=== PATIENT | female | born 1960 | race Caucasian/White ===

== ENCOUNTER 2017-08-25 11:51 | Emergency (ER) | payer OTHER ==
[2017-08-25 12:07] VITALS: BP 160/106; PULSE 80; O2SAT 98
[2017-08-25] MEDS ORDERED: TORAdol 30 mg Injection IM ONE (12:13)
[2017-08-25] MEDS ORDERED: TORAdol 30 mg Injection ONE (12:18)
--- NOTE | 2017-08-25 12:19 | ERPHSYRPT ---
- History of Present Illness Time Seen by Provider: 08/25/17 12:14 Source: patient Exam Limitations: no limitations Patient Subjective Stated Complaint: PT states "I have been moving and I think I threw my back out and it goes down into my legs." Triage Nursing Assessment: Pt alert and oriented X 3, skin pwd. PT ambulates with a hunched over gait, able to speak in clear full sentences Physician History: patient presents with low back pain 4 days. Patient states that she's been lifting quite a few boxes moving from apartment to apartment. States pain bilaterally in lower back, described as crampy, localized and intermittent. States pain is worse with movement and decreases with immobilization. Patient denies any fever, chills, urinary or bowel incontinence, numbness or tingling. Patient did note that pain does sh right leg intermittently as well. Patient has tried some Tylenol with minimal relief. States that she has had previous back pain/symptoms previously Timing/Duration: day(s) (4) Method of Injury: lifting Quality: radiating (Right leg), aching Back Pain Location: T-spine Back Pain Radiation: upper legs Severity of Pain-Max: moderate Severity of Pain-Current: moderate Modifying Factors: Improves With: immobilization (improves), movement (worsens) Associated Symptoms: denies symptoms, No fever, No chills, No urinary incontinence, No loss of bowel control, No constipation, No nausea, No vomiting , No problems urinating, No weakness, No sensory/motor loss, No tingling in legs /feet, No muscle spasms Previous symptoms: same symptoms as today Allergies/Adverse Reactions: Penicillins Allergy (Severe, Verified 08/25/17 12:07) Swelling Home Medications: Albuterol 17 gm IH DAILY 08/25/17 [History] Hydroxyzine HCl 25 mg [Atarax 25 mg] 25 mg PO DAILY 08/25/17 [History] Lisinopril [Zestril] 20 mg PO DAILY 08/25/17 [History] Hx Tetanus, Diphtheria Vaccination/Date Given: Yes Hx Influenza Vaccination/Date Given: No Hx Pneumococcal Vaccination/Date Given: No Immunizations Up to Date: Yes - Review of Systems Constitutional: No Fever, No Chills Eyes: No Symptoms Ears, Nose, & Throat: No Symptoms Respiratory: No Cough, No Dyspnea Cardiac: No Chest Pain, No Edema, No Syncope Abdominal/Gastrointestinal: Constipation, No Abdominal Pain, No Nausea, No Vomiting, No Diarrhea Genitourinary Symptoms: No Symptoms, No Dysuria Musculoskeletal: Back Pain, No Neck Pain Skin: No Symptoms, No Rash Neurological: No Symptoms, No Dizziness, No Focal Weakness, No Sensory Changes Psychological: No Symptoms Endocrine: No Symptoms All Other Systems: Reviewed and Negative - Past Medical History Pertinent Past Medical History: Yes Neurological History: Migraines Cardiac History: High Cholesterol, Hypertension Respiratory History: COPD, Sleep Apnea GI Medical History: GERD Psycho-Social History: Anxiety, Depression - Past Surgical History Past Surgical History: Yes Other Surgical History: tubal - Social History Smoking Status: Current every day smoker How long have you smoked: 40 years Exposure to second hand smoke: Yes Drug Use: marijuana Patient Lives Alone: Yes - Female History Hx Last Menstrual Period: 10-15 years ago tubal Hx Now: No - Nursing Vital Signs Nursing Vital Signs: Initial Vital Signs Temperature 98.7 F 08/25/17 11:57 Pulse Rate 80 08/25/17 11:57 Respiratory Rate 20 08/25/17 11:57 Blood Pressure 160/106 08/25/17 11:57 O2 Sat by Pulse Oximetry 98 08/25/17 11:57 Pain Scale Pain Intensity [Right Back] 8 Pain Intensity 8 - Physical Exam General Appearance: no apparent distress, alert Eye Exam: PERRL/EOMI, eyes nml inspection Neck Exam: normal inspection, non-tender, supple, full range of motion, No meningismus, No midline tenderness Respiratory Exam: normal breath sounds, lungs clear, No respiratory distress Cardiovascular Exam: regular rate/rhythm, normal heart sounds Gastrointestinal Exam: soft, No tenderness, No mass Back Exam: normal inspection, point tenderness (there is some paralumbar tenderness bilaterally..), other (decreased range of motion due to pain) Extremity Exam: normal inspection, normal range of motion, No calf tenderness, No pedal edema Peripheral Pulses: dorsalis-pedis (R): 2+, dorsalis-pedis (L): 2+ Neurologic Exam: alert, oriented x 3, cooperative, 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 Decrease activity over next 2-3 days. May take Motrin 400 mg every 6 hours and/ or Tylenol 650 mg every 4 hours for pain. Return for worse back pain, numbnness, tingling or weakness of any extremities Prescriptions: Methylprednisolone Packet [Medrol Dosepack] 4 mg PO UD #30 packet
== END 2017-08-25 13:25 | disposition home or self-care (01) ==
LOC: ED 11:51
DX: M54.5 Low back pain (principal); M62.830 Muscle spasm of back
CPT/HCPCS: 96372; 96374; 99283; 99284; J1885

== ENCOUNTER 2017-10-13 17:12 | Emergency (ER) | payer OTHER ==
[2017-10-13 17:36] VITALS: BP 161/115
[2017-10-13] MEDS ORDERED: Sodium Chloride 0.9% 1000 ML 1,000 ML ONE (17:39)
[2017-10-13] MEDS ORDERED: Nitrostat 0.4 MG (ED) SL ONE (17:39)
[2017-10-13] MEDS ORDERED: BABY ASPIRIN 81 MG CHEW ONE (17:39)
[2017-10-13] MEDS: BABY ASPIRIN 81 MG CHEW PO ONE (17:42)
[2017-10-13] MEDS: Sodium Chloride 0.9% 1000 ML 1,000 ML IV SCH (17:43)
[2017-10-13] MEDS: Nitrostat 0.4 MG (ED) SL ONE ×2 (17:43→18:25)
[2017-10-13] MEDS ORDERED: DUONEB 0.5-3 MG/3 ml Neb IH ONE (17:51)
[2017-10-13 17:53] LABS: BASOPHIL % 0.5 % (0.0-0.4); Basophil (Absolute #) 0.03 (0-0.4); Eosinophil % 1.8 % (0.00-5.0); Granulocyte Absolute (ANC) 2.76 (1.4-6.9); Granulocytes % 50.4 % (36.0-66.0); Hemoglobin 13.8 gm/dl (12.0-16.0); Lymphocyte (Absolute #) 2.12 (1.0-4.6); Lymphocytes % 38.6 % (24.0-44.0); Mean Cell Volume 96.7 fl (78-100); Mean Corpuscular Hemoglobin 32.5 pg (26-32); Mean Corpuscular Hgb Concent. 33.7 g/dl (32-36); Mean Platelet Volume 9.9 fl (6-9.5); Monocyte (Absolute #) 0.48 (0.0-1.3); Monocytes % 8.7 % (0.0-12.0); Platelet Count 204 K/mm3 (150-450); Red Blood Count 4.24 M/mm3 (4.1-5.4); Red Cell Distribution Width 12.2 % (11.5-14.0); White Blood Count 5.5 K/mm3 (4.0-10.5)
[2017-10-13] MEDS: DUONEB 0.5-3 MG/3 ml Neb IH ONE (17:56)
[2017-10-13 18:03] VITALS: PULSE 84; O2SAT 99
[2017-10-13 18:10] LABS: ALBUMIN 3.8 g/dL (3.5-5.0); ALKALINE PHOSPHATASE 68 U/L (38-126); ANION GAP 12.5 MEQ/L (5-15); BLOOD UREA NITROGEN 15 mg/dL (7-17); CHLORIDE 107 mmol/L (98-107); Calcium 9.1 mg/dL (8.4-10.2); Carbon Dioxide 23 mmol/L (22-30); Creatinine 1 0.63 mg/dL (0.52-1.04); Glucose 96 mg/dL (74-106); Potassium 4.2 mmol/L (3.5-5.1); SGOT/AST 70 U/L (14-36); SGPT/ALT 64 U/L (0-35); SODIUM 138 mmol/L (137-145); Total Protein 6.8 g/dL (6.3-8.2)
[2017-10-13] MEDS ORDERED: TORAdol 30 mg Injection ONE (18:18)
[2017-10-13] MEDS: TORAdol 30 mg Injection IV ONE (18:25)
--- NOTE | 2017-10-13 20:49 | ERPHSYRPT ---
- History of Present Illness Time Seen by Provider: 10/13/17 17:30 Historian: patient Exam Limitations: clinical condition Patient Subjective Stated Complaint: pt reports substernal chest pain beginning last night-states that it takes her breath away-denies recent illness-states that she has hx of high bp Triage Nursing Assessment: pt pink warm and [id number] easy and nonlabored- speaking in complete sentences with no difficulty-right radial pulse regular Physician History: PATIENT WITH A HISTORY OF HYPERTENSON AND COPD COMPLAINS OF SUBSTERNAL CHEST PAIN X 2 DAYS. HAS SHARP ASSOCIATED WITH DIFFICULTY BREATHING. DENIES RADIATION OF PAIN TO BACK, NECK OR JAW. DENIES COUGH, FEVER OR CHILLS. Timing/Duration: yesterday Activities at Onset: none Quality: pressure, sharpness Location: substernal Chest Pain Radiation: no radiation Severity of Pain-Max: moderate Severity of Pain-Current: moderate Modifying Factors: Improves With: breathing Associated Symptoms: shortness of breath, hurts to breathe Prior Chest Pain/Cardiac Workup: angina Nitro Today/Relief: 0.4 mg x 2, provided by ED Aspirin Treatment Today: 81 mg x 4, provided by ED Allergies/Adverse Reactions: Penicillins Allergy (Severe, Verified 10/13/17 17:36) Swelling Home Medications: Albuterol 17 gm IH DAILY 08/25/17 [History] Hydroxyzine HCl 25 mg [Atarax 25 mg] 25 mg PO DAILY 08/25/17 [History] Lisinopril [Zestril] 20 mg PO DAILY 08/25/17 [History] Hx Tetanus, Diphtheria Vaccination/Date Given: No Hx Influenza Vaccination/Date Given: Yes Hx Pneumococcal Vaccination/Date Given: No Immunizations Up to Date: Yes - Review of Systems Constitutional: No Fever, No Chills Eyes: No Symptoms Ears, Nose, & Throat: No Symptoms Respiratory: No Cough, No Dyspnea Cardiac: No Chest Pain, No Edema, No Syncope Abdominal/Gastrointestinal: No Abdominal Pain, No Nausea, No Vomiting, No Diarrhea Genitourinary Symptoms: No Symptoms, No Dysuria Musculoskeletal: No Symptoms, No Back Pain, No Neck Pain Skin: No Symptoms, No Rash Neurological: No Dizziness, No Focal Weakness, No Sensory Changes Psychological: No Symptoms Endocrine: No Symptoms All Other Systems: Reviewed and Negative - Past Medical History Pertinent Past Medical History: Yes Neurological History: Migraines Cardiac History: Hypertension Respiratory History: COPD GI Medical History: GERD Psycho-Social History: Anxiety, Depression Other Medical History: hep c - Past Surgical History Past Surgical History: Yes Cardiac: Cardiac Stent Other Surgical History: tubal - Social History Smoking Status: Current every day smoker How long have you smoked: yrs Exposure to second hand smoke: No Drug Use: none Patient Lives Alone: No - Nursing Vital Signs Nursing Vital Signs: Initial Vital Signs Temperature 98.1 F 10/13/17 17:15 Pulse Rate 81 10/13/17 17:15 Respiratory Rate 18 10/13/17 17:15 Blood Pressure 161/115 10/13/17 17:15 O2 Sat by Pulse Oximetry 98 10/13/17 17:15 Pain Scale Pain Intensity 10 - Physical Exam General Appearance: no apparent distress, alert Eye Exam: PERRL/EOMI, eyes nml inspection Ears, Nose, Throat Exam: normal ENT inspection, moist mucous membranes Neck Exam: normal inspection, non-tender, supple, full range of motion Respiratory Exam: normal breath sounds, chest tenderness (PARASTERNAL T-2 TO T-5 ), lungs clear, No respiratory distress Cardiovascular Exam: regular rate/rhythm, normal heart sounds Gastrointestinal/Abdomen Exam: soft, No tenderness, No mass Back Exam: normal inspection, No CVA tenderness, No vertebral tenderness Extremity Exam: normal inspection, normal range of motion Neurologic Exam: alert, oriented x 3, cooperative, normal mood/affect, sensation nml, No motor deficits Skin Exam: normal color, warm, dry SpO2 Interpretation: normal SpO2: 99 Oxygen Delivery: Room Air - Course EKG Interpreted by Me: RATE, Sinus Rhythm, Sinus Eliecer, NORMAL AXIS Ordered Tests: Active Orders 24 hr Category Date Time Status Instrumentation And Controls Technician STAT Care 10/13/17 17:30 Active EKG-ER Only STAT Care 10/13/17 17:29 Active IV Insertion STAT Care 10/13/17 17:29 Active Oxygen-ED Only NASAL CANNULA 2 lpm Care 10/13/17 17:29 Active Pulse Oximetry (ED) STAT Care 10/13/17 17:29 Active CHEST 1 VIEW (PORTABLE) Stat Exams 10/13/17 17:30 Taken CBC W DIFF Stat Lab 10/13/17 17:35 Completed CMP Stat Lab 10/13/17 17:35 Completed D-DIMER QUANTITATION Stat Lab 10/13/17 17:35 Completed MAGNESIUM Stat Lab 10/13/17 17:35 Completed TROPONIN Q3H Lab 10/13/17 17:35 Completed TROPONIN Q3H Lab 10/13/17 23:30 Ordered Respiratory Nebulizer STAT RT 10/13/17 17:37 Completed Medication Summary Discontinued Medications Generic Name Dose Route Start Last Admin Trade Name Luisq PRN Reason Stop Dose Admin Albuterol/Ipratropium 3 ml 10/13/17 17:36 10/13/17 17:56 Duoneb 0.5-3 Mg/3 Ml Neb IH 10/13/17 17:37 3 ml STAT ONE Administration Albuterol/Ipratropium Confirm 10/13/17 17:51 Duoneb 0.5-3 Mg/3 Ml Neb Administered 10/13/17 17:52 Dose 3 ml IH .STK-MED ONE Aspirin 324 mg 10/13/17 17:29 10/13/17 17:42 Baby Aspirin 81 Mg Chew PO 10/13/17 17:30 324 mg STAT ONE Administration Aspirin Confirm 10/13/17 17:39 Baby Aspirin 81 Mg Chew Administered 10/13/17 17:40 Dose 324 mg .ROUTE .STK-MED ONE Sodium Chloride 1,000 mls @ 100 mls/hr 10/13/17 17:30 10/13/17 17:43 Sodium Chloride 0.9% 1000 Ml IV 11/12/17 17:29 100 mls/hr .Q10H MONTEZ Administration Sodium Chloride Confirm 10/13/17 17:39 Sodium Chloride 0.9% 1000 Ml Administered 10/13/17 17:40 Dose 1,000 mls @ ud .ROUTE .STK-MED ONE Ketorolac Tromethamine Confirm 10/13/17 18:18 Toradol 30 Mg Injection Administered 10/13/17 18:19 Dose 30 mg .ROUTE .STK-MED ONE Ketorolac Tromethamine 30 mg 10/13/17 18:19 10/13/17 18:25 Toradol 30 Mg Injection IV 10/13/17 18:20 30 mg STAT ONE Administration Nitroglycerin 0.4 mg 10/13/17 17:29 10/13/17 17:43 Nitrostat 0.4 Mg (Ed) SL 10/13/17 17:30 0.4 mg STAT ONE Administration Nitroglycerin Confirm 10/13/17 17:39 Nitrostat 0.4 Mg (Ed) Administered 10/13/17 17:40 Dose 0.4 mg SL .STK-MED ONE Nitroglycerin 0.4 mg 10/13/17 18:19 10/13/17 18:25 Nitrostat 0.4 Mg (Ed) SL 10/13/17 18:20 0.4 mg STAT ONE Administration Lab/Rad Data: Laboratory Result Diagrams 10/13/17 17:35 10/13/17 17:35 Laboratory Results 10/13/17 10/13/17 10/13/17 Range/Units 17:35 17:35 17:35 WBC (4.0-10.5) K/mm3 RBC (4.1-5.4) M/mm3 Hgb (12.0-16.0) gm/dl Hct (35-47) % MCV (78-100) fl MCH (26-32) pg MCHC (32-36) g/dl RDW (11.5-14.0) % Plt Count (150-450) K/mm3 MPV (6-9.5) fl Gran % (36.0-66.0) % Eos # (Auto) (0-0.5) Absolute Lymphs (auto) (1.0-4.6) Absolute Monos (auto) (0.0-1.3) Lymphocytes % (24.0-44.0) % Monocytes % (0.0-12.0) % Eosinophils % (0.00-5.0) % Basophils % (0.0-0.4) % Absolute Granulocytes (1.4-6.9) Basophils # (0-0.4) D-Dimer 223.95 (215-500) ng/mL Sodium 138 (137-145) mmol/L Potassium 4.2 (3.5-5.1) mmol/L Chloride 107 (98-107) mmol/L Carbon Dioxide 23 (22-30) mmol/L Anion Gap 12.5 (5-15) MEQ/L BUN 15 (7-17) mg/dL Creatinine 0.63 (0.52-1.04) mg/dL Estimated GFR > 60.0 ML/MIN Glucose 96 (74-106) mg/dL Calcium 9.1 (8.4-10.2) mg/dL Magnesium 1.8 (1.6-2.3) mg/dL Total Bilirubin 0.40 (0.2-1.3) mg/dL AST 70 H (14-36) U/L ALT 64 H (0-35) U/L Alkaline Phosphatase 68 (38-126) U/L Troponin I < 0.012 (0.000-0.034) ng/mL Serum Total Protein 6.8 (6.3-8.2) g/dL Albumin 3.8 (3.5-5.0) g/dL 10/13/17 Range/Units 17:35 WBC 5.5 (4.0-10.5) K/mm3 RBC 4.24 (4.1-5.4) M/mm3 Hgb 13.8 (12.0-16.0) gm/dl Hct 41.0 (35-47) % MCV 96.7 (78-100) fl MCH 32.5 H (26-32) pg MCHC 33.7 (32-36) g/dl RDW 12.2 (11.5-14.0) % Plt Count 204 (150-450) K/mm3 MPV 9.9 H (6-9.5) fl Gran % 50.4 (36.0-66.0) % Eos # (Auto) 0.10 (0-0.5) Absolute Lymphs (auto) 2.12 (1.0-4.6) Absolute Monos (auto) 0.48 (0.0-1.3) Lymphocytes % 38.6 (24.0-44.0) % Monocytes % 8.7 (0.0-12.0) % Eosinophils % 1.8 (0.00-5.0) % Basophils % 0.5 (0.0-0.4) % Absolute Granulocytes 2.76 (1.4-6.9) Basophils # 0.03 (0-0.4) D-Dimer (215-500) ng/mL Sodium (137-145) mmol/L Potassium (3.5-5.1) mmol/L Chloride (98-107) mmol/L Carbon Dioxide (22-30) mmol/L Anion Gap (5-15) MEQ/L BUN (7-17) mg/dL Creatinine (0.52-1.04) mg/dL Estimated GFR ML/MIN Glucose (74-106) mg/dL Calcium (8.4-10.2) mg/dL Magnesium (1.6-2.3) mg/dL Total Bilirubin (0.2-1.3) mg/dL AST (14-36) U/L ALT (0-35) U/L Alkaline Phosphatase (38-126) U/L Troponin I (0.000-0.034) ng/mL Serum Total Protein (6.3-8.2) g/dL Albumin (3.5-5.0) g/dL - Progress Progress: improved Progress Note: 10/13/17 20:50 ADMINISTERED NTG 0.4MG SL, NO RELIEF, PAIN IMPROVED AFTER TORADOL 30MG IV AND NTG 0.4MG SL, DISCUSSED WITH PATIENT CONCERNING OBSERVATION BUT PATIENT REFUSED ADMISSION 10/13/17 20:51 Counseled pt/family regarding: lab results, diagnosis, need for follow-up - Departure Time of Disposition: 17:56 Departure Disposition: AMA Clinical Impression: ATYPICAL CHEST PAIN Condition: Stable Critical Care Time: No Referrals: DOCTOR,NO FAMILY [Primary Care Provider] - Additional Instructions: FOLLOWUP WITH YOUR PRIMARY CARE PROVIDER. RETURN TO EMERGENCY FOR CHEST PAIN.
--- NOTE | 2017-10-14 08:51 | XRAY ---
Indication: Chest pain. Comparison: None Portable chest demonstrates normal heart, lungs, and bony thorax with a few incidental tiny calcified granulomas.
== END 2017-10-13 20:19 | disposition left against medical advice (07) ==
LOC: ED 17:12
DX: R07.89 Other chest pain (principal); R06.02 Shortness of breath; Z79.899 Other long term (current) drug therapy
CPT/HCPCS: 36000; 36415; 71045; 80053; 83735; 84484; 85025; 85379; 93005; 93041; 94150; 94640; 96374; 96375; 99284; J1885; A9270-GY

== ENCOUNTER 2017-10-22 12:58 | Emergency (ER) | payer OTHER ==
--- NOTE | 2017-10-22 13:20 | ERPHSYRPT ---
- History of Present Illness Time Seen by Provider: 10/22/17 13:16 Source: patient Physician History: mild to mod sorethroat for one week, no fever, speech fluent, +smoking, no rash Allergies/Adverse Reactions: Penicillins Allergy (Severe, Verified 10/13/17 17:36) Swelling Home Medications: Albuterol 17 gm IH DAILY 08/25/17 [History] Hydroxyzine HCl 25 mg [Atarax 25 mg] 25 mg PO DAILY 08/25/17 [History] Lisinopril [Zestril] 20 mg PO DAILY 08/25/17 [History] Hx Tetanus, Diphtheria Vaccination/Date Given: No Hx Influenza Vaccination/Date Given: Yes Hx Pneumococcal Vaccination/Date Given: No - Review of Systems Constitutional: No Fever Eyes: No Vision Changes Ears, Nose, & Throat: Painful Swallowing, No Ear Pain, No Throat Swelling, No Hoarse Respiratory: No Dyspnea Cardiac: No Chest Pain Abdominal/Gastrointestinal: No Abdominal Pain Skin: No Rash Neurological: No Dizziness - Past Medical History Pertinent Past Medical History: Yes Neurological History: Migraines Cardiac History: Hypertension Respiratory History: COPD GI Medical History: GERD Psycho-Social History: Anxiety, Depression Other Medical History: hep c - Past Surgical History Past Surgical History: Yes Cardiac: Cardiac Stent Other Surgical History: tubal - Social History Smoking Status: Current every day smoker How long have you smoked: yrs Exposure to second hand smoke: No Drug Use: none Patient Lives Alone: No - Physical Exam General Appearance: no apparent distress Eye Exam: PERRL/EOMI Ears, Nose, Throat Exam: moist mucous membranes, pharyngeal erythema, other (no peritonsillar mass) Neck Exam: normal inspection, supple, full range of motion, No meningismus, No midline tenderness Respiratory Exam: normal breath sounds Cardiovascular Exam: regular rate/rhythm Back Exam: normal inspection Extremity Exam: normal inspection Neurologic Exam: alert, oriented x 3, cooperative Skin Exam: normal color, warm, dry - Course Nursing assessment & vital signs reviewed: Yes - Progress Progress Note: 10/22/17 13:19 differential d/w pt as cancer - Departure Time of Disposition: 13:19 Departure Disposition: Home Clinical Impression: Pharyngitis Qualifiers: Pharyngitis/tonsillitis etiology: unspecified etiology Qualified Code(s): J02.9 - Acute pharyngitis, unspecified Condition: Stable Critical Care Time: No Referrals: SERAFIN STONER [Primary Care Provider] - Instructions: Sore Throat, Adult (DC) Additional Instructions: see your doctor, return if worse, zpak, motrin, oral fluids
[2017-10-22 13:40] VITALS: BP 152/105; PULSE 77; O2SAT 98
== END 2017-10-22 13:45 | disposition home or self-care (01) ==
LOC: ED 12:58
DX: J02.9 Acute pharyngitis, unspecified (principal)
CPT/HCPCS: 99281; 99283

== ENCOUNTER 2017-12-18 19:52 | Emergency (ER) | payer OTHER ==
[2017-12-18 20:08] VITALS: O2SAT 97
[2017-12-18] MEDS ORDERED: BENADRYL 25 MG CAPSULE PO ONE (20:14)
[2017-12-18] MEDS ORDERED: DELTASONE 20 MG PO ONE (20:14)
[2017-12-18] MEDS ORDERED: Pepcid 20 MG PO ONE (20:15)
[2017-12-18] MEDS ORDERED: DELTASONE 20 MG ONE (20:18)
[2017-12-18] MEDS ORDERED: Pepcid 20 MG ONE (20:18)
[2017-12-18] MEDS ORDERED: BENADRYL 25 MG CAPSULE ONE (20:18)
--- NOTE | 2017-12-18 20:18 | ERPHSYRPT ---
- History of Present Illness Time Seen by Provider: 12/18/17 20:15 Source: patient Exam Limitations: no limitations Patient Subjective Stated Complaint: pt states she was in the yard working and was bit by insects. states the redness is gong up her arm and hereye is itching an painful Triage Nursing Assessment: pt alert and oriented, asnwers questions approp. pt ambulatory with steady gait noted. respirations nonlabored with lungs cta. red raised areas noted to rt medial upper arm. red raised area noted below lt eye. Physician History: 57 y/o female comes to the ER with complaints of right arm redness and left eyelid swelling and redness that started after a cat bit her on the right arm. Pt also admits that her throat is scratchy, but does not feel that her throat is closing, no shortness of breath or spread of the rash. Pt has a known allergy to cats and says that she started rubbing her left eye. Timing/Duration: today Quality: itchy Severity: mild Location: face, extremities Possible Causes: other (cat bite) Modifying Factors: Improves With: scratching Associated Symptoms: change in skin texture, sore throat Allergies/Adverse Reactions: Penicillins Allergy (Severe, Verified 12/18/17 20:08) Swelling Home Medications: Albuterol 17 gm IH DAILY 08/25/17 [History] Hydroxyzine HCl 25 mg [Atarax 25 mg] 25 mg PO DAILY 08/25/17 [History] Lisinopril [Zestril] 20 mg PO DAILY 08/25/17 [History] Aspirin EC 81 mg [Ecotrin 81 mg] 81 mg PO DAILY 10/22/17 [History] Dicyclomine HCl 10 mg PO TID 10/22/17 [History] Fluticasone/Vilanterol [Breo Ellipta 100-25 Mcg INH] 1 each IH BID 10/22/17 [ History] Omeprazole 20 MG [Prilosec 20 mg] 20 mg PO DAILY 10/22/17 [History] Prazosin HCl [Minipress] 2 mg PO TID 10/22/17 [History] Sumatriptan Succinate [Imitrex] 100 mg PO UD 10/22/17 [History] Hx Tetanus, Diphtheria Vaccination/Date Given: Yes Hx Influenza Vaccination/Date Given: Yes Hx Pneumococcal Vaccination/Date Given: No Immunizations Up to Date: Yes - Review of Systems Constitutional: No Fever, No Chills Eyes: No Symptoms, Eye Redness, Itchy Ears, Nose, & Throat: No Symptoms Respiratory: No Cough, No Dyspnea Cardiac: No Chest Pain, No Edema, No Syncope Abdominal/Gastrointestinal: No Abdominal Pain, No Nausea, No Vomiting, No Diarrhea Genitourinary Symptoms: No Dysuria Musculoskeletal: No Back Pain, No Neck Pain Skin: Pruritis, Rash Neurological: No Dizziness, No Focal Weakness, No Sensory Changes Psychological: No Symptoms Endocrine: No Symptoms All Other Systems: Reviewed and Negative - Past Medical History Pertinent Past Medical History: Yes Neurological History: Migraines Cardiac History: Hypertension Respiratory History: COPD GI Medical History: GERD Psycho-Social History: Anxiety, Depression Other Medical History: hep c - Past Surgical History Past Surgical History: Yes Cardiac: Cardiac Stent Other Surgical History: tubal - Social History Smoking Status: Current every day smoker How long have you smoked: yrs Exposure to second hand smoke: No Drug Use: none Patient Lives Alone: Yes - Nursing Vital Signs Nursing Vital Signs: Initial Vital Signs Temperature 98.5 F 12/18/17 19:57 Pulse Rate 91 H 12/18/17 19:57 Respiratory Rate 18 12/18/17 19:57 Blood Pressure 147/104 12/18/17 19:57 O2 Sat by Pulse Oximetry 97 12/18/17 19:57 Pain Scale Pain Intensity 3 - Physical Exam General Appearance: no apparent distress, alert Eye Exam: PERRL/EOMI, eyes nml inspection, other (left eyelid swelling and erythema) Ears, Nose, Throat Exam: normal ENT inspection, pharynx normal, moist mucous membranes Neck Exam: normal inspection, non-tender, supple, full range of motion Respiratory Exam: normal breath sounds, lungs clear, No respiratory distress Cardiovascular Exam: regular rate/rhythm, normal heart sounds Gastrointestinal/Abdomen Exam: soft, mass, No tenderness Back Exam: normal inspection, normal range of motion, No CVA tenderness, No vertebral tenderness Extremity Exam: normal inspection, normal range of motion Neurologic Exam: alert, oriented x 3, cooperative, normal mood/affect, sensation nml, No motor deficits Skin Exam: warm, dry, rash SpO2: 97 Oxygen Delivery: Room Air - Course Nursing assessment & vital signs reviewed: Yes Ordered Tests: Medication Summary Discontinued Medications Generic Name Dose Route Start Last Admin Trade Name Luisq PRN Reason Stop Dose Admin Diphenhydramine HCl 25 mg 12/18/17 20:14 12/18/17 20:19 Benadryl 25 Mg Capsule PO 12/18/17 20:15 25 mg STAT ONE Administration Diphenhydramine HCl Confirm 12/18/17 20:18 Benadryl 25 Mg Capsule Administered 12/18/17 20:19 Dose 25 mg .ROUTE .STK-MED ONE Famotidine 40 mg 12/18/17 20:15 12/18/17 20:19 Pepcid 20 Mg PO 12/18/17 20:16 40 mg STAT ONE Administration Famotidine Confirm 12/18/17 20:18 Pepcid 20 Mg Administered 12/18/17 20:19 Dose 40 mg .ROUTE .STK-MED ONE Prednisone 40 mg 12/18/17 20:14 12/18/17 20:19 Deltasone 20 Mg PO 12/18/17 20:15 40 mg STAT ONE Administration Prednisone Confirm 12/18/17 20:18 Deltasone 20 Mg Administered 12/18/17 20:19 Dose 40 mg .ROUTE .STK-MED ONE - Progress Progress: improved Progress Note: 12/18/17 20:58 Pt feels better after receiving benadryl, pepcid and prednisone. Pt will be sent home with similar meds for allergic reaction. - Departure Time of Disposition: 20:58 Departure Disposition: Home Clinical Impression: Allergic reaction Qualifiers: Encounter type: initial encounter Qualified Code(s): T78.40XA - Allergy, unspecified, initial encounter Condition: Stable Critical Care Time: No Referrals: SERAFIN STONER [Primary Care Provider] - Instructions: Animal Bites (DC), Hives (DC) Additional Instructions: Return to the ER if you should have worsening rash, throat closing, swelling of the mouth or shortness of breath. Prescriptions: Diphenhydramine HCl [Benadryl] 25 mg PO QID PRN #20 capsule PRN Reason: Allergies Famotidine 20 mg [Pepcid 20 MG] 20 mg PO DAILY #5 tablet Prednisone 20 mg [Deltasone 20 mg] 20 mg PO DAILY #5 tablet
[2017-12-18 20:54] VITALS: BP 133/9; PULSE 93
== END 2017-12-18 21:10 | disposition home or self-care (01) ==
LOC: ED 19:52
DX: T78.40XA Allergy, unspecified, initial encounter (principal)
CPT/HCPCS: 99283; A9270-GY

== ENCOUNTER 2018-01-27 10:52 | Emergency (ER) | payer OTHER ==
--- NOTE | 2018-01-27 11:10 | ERPHSYRPT ---
- History of Present Illness Time Seen by Provider: 01/27/18 11:10 Source: patient Exam Limitations: no limitations Physician History: 57 y/o white female presents with 3 week h/o worsening bilateral earache left worse than right. feels tenderness, inner ear itching and sensation as though something is crawling in and around bilat ears. denies recent injury to either ears. pt states she has been tx for mastoiditis in the past. feels similar. Timing/Duration: gradual onset (over 3 weeks) Severity: moderate ENT Location: ear (R), ear (L) Prearrival Treatment: no prearrival treatment Modifying Factors: Improves With: nothing Associated Symptoms: ear pain (R), ear pain (L), jaw pain (left tmj region), No change in hearing, No headache, No hearing loss, No motion sickness, No nasal congestion/drainage, No epistaxis, No neck pain, No ringing of ears Allergies/Adverse Reactions: Penicillins Allergy (Severe, Verified 01/27/18 11:21) Swelling Home Medications: Albuterol 17 gm IH DAILY 08/25/17 [History] Hydroxyzine HCl 25 mg [Atarax 25 mg] 25 mg PO DAILY 08/25/17 [History] Lisinopril [Zestril] 20 mg PO DAILY 08/25/17 [History] Aspirin EC 81 mg [Ecotrin 81 mg] 81 mg PO DAILY 10/22/17 [History] Dicyclomine HCl 10 mg PO TID 10/22/17 [History] Fluticasone/Vilanterol [Breo Ellipta 100-25 Mcg INH] 1 each IH BID 10/22/17 [ History] Omeprazole 20 MG [Prilosec 20 mg] 20 mg PO DAILY 10/22/17 [History] Prazosin HCl [Minipress] 2 mg PO TID 10/22/17 [History] Sumatriptan Succinate [Imitrex] 100 mg PO UD 10/22/17 [History] Hx Tetanus, Diphtheria Vaccination/Date Given: Yes Hx Influenza Vaccination/Date Given: Yes Hx Pneumococcal Vaccination/Date Given: No - Review of Systems Constitutional: No Symptoms Eyes: No Symptoms Ears, Nose, & Throat: Ear Pain (bilat), No Nose Pain, No Nose Congestion, No Epistaxis, No Throat Pain Respiratory: No Symptoms, No Cough, No Dyspnea Cardiac: No Symptoms, No Chest Pain, No Palpitations, No Syncope Abdominal/Gastrointestinal: No Symptoms, No Abdominal Pain, No Nausea, No Vomiting, No Diarrhea Genitourinary Symptoms: No Symptoms, No Dysuria, No Frequency, No Hematuria Musculoskeletal: No Symptoms, No Back Pain, No Neck Pain, No Fall, No Injury Skin: No Symptoms, No Cellulitis Neurological: No Symptoms, No Dizziness, No Headache Psychological: No Symptoms, No Alcohol Abuse, No Drug Abuse, No Anxiety Endocrine: No Symptoms Hematologic/Lymphatic: No Symptoms Immunological/Allergic: No Symptoms All Other Systems: Reviewed and Negative - Past Medical History Pertinent Past Medical History: Yes Neurological History: Migraines ENT History: No Pertinent History Cardiac History: Hypertension Respiratory History: No Pertinent History, COPD Endocrine Medical History: No Pertinent History Musculoskeletal History: No Pertinent History GI Medical History: GERD History: No Pertinent History Psycho-Social History: Anxiety, Depression Female Reproductive Disorders: No Pertinent History Other Medical History: hep c - Past Surgical History Past Surgical History: Yes Neuro Surgical History: No Pertinent History Cardiac: Cardiac Stent Respiratory: No Pertinent History Other Surgical History: tubal - Social History Smoking Status: Current every day smoker How long have you smoked: yrs Exposure to second hand smoke: No Drug Use: none Patient Lives Alone: Yes - Nursing Vital Signs Nursing Vital Signs: Initial Vital Signs Temperature 97.4 F 01/27/18 10:57 Pulse Rate 68 01/27/18 10:57 Respiratory Rate 18 01/27/18 10:57 Blood Pressure 149/106 01/27/18 10:57 O2 Sat by Pulse Oximetry 98 01/27/18 10:57 Pain Scale Pain Intensity 5 - Physical Exam Eye Exam: bilateral eye: normal inspection, PERRL, EOMI Ear Exam: bilateral ear: auricle normal, canal normal, TM normal Nasal Exam: normal inspection, No active bleeding, No sinus tenderness Throat Exam: normal, pharynx normal, moist mucus membranes, No dental tenderness , No maxillary swelling, No pharynx swelling, No tongue swollen, No tonsillar swelling, No uvula swelling, No voice changes Neck Exam: normal inspection, non-tender, supple, full range of motion, trachea midline, No lymphadenopathy (R), No lymphadenopathy (L) Cardiovascular/Respiratory Exam: chest non-tender, normal breath sounds, regular rate/rhythm, heart sounds normal Abdominal Exam: non-tender, soft, no organomegaly, no hernia, guarding, No tenderness Neurologic Exam: alert, oriented x 3, cooperative, 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 saldana for persistent symptoms. Prescriptions: Ciprofloxacin [Cipro 500 MG] 500 mg PO BID #14 tablet Prednisone 10 mg [Deltasone 10 mg] 10 mg PO TID #12 tablet
[2018-01-27 11:57] VITALS: BP 141/99; PULSE 61; O2SAT 99
== END 2018-01-27 12:07 | disposition home or self-care (01) ==
LOC: ED 10:52
DX: H70.93 Unspecified mastoiditis, bilateral (principal); R68.84 Jaw pain; Z79.82 Long term (current) use of aspirin; Z79.899 Other long term (current) drug therapy
CPT/HCPCS: 99283

== ENCOUNTER 2019-04-16 20:37 | Emergency (ER) | payer OTHER ==
--- NOTE | 2019-04-16 20:42 | ERPHSYRPT ---
- History of Present Illness Time Seen by Provider: 04/16/19 20:40 Historian: patient Exam Limitations: no limitations Physician History: 58 y/o white female presents with one day h/o right side abd pain. denies n/v/ d. has had two painful bms. no bloody bms, no vaginal bleeding. pt has had a btl but no other abd surgeries. pt refuses iv placement and refuses blood draw. she agrees to ua and ct abd/pelvis. Timing/Duration: day(s) (1) Quality: sharpness Abdominal Pain Onset Location: RUQ, RLQ, periumbilical Pain Radiation: no radiation Severity of Pain-Max: mild Severity of Pain-Current: mild Modifying Factors: Improves With: nothing Associated Symptoms: denies symptoms Previous symptoms: no prior history Allergies/Adverse Reactions: Penicillins Allergy (Severe, Verified 04/16/19 21:05) Swelling Home Medications: Albuterol 17 gm IH DAILY 08/25/17 [History] Hydroxyzine HCl 25 mg [Atarax 25 mg] 25 mg PO DAILY 08/25/17 [History] Lisinopril [Zestril] 20 mg PO DAILY 08/25/17 [History] Aspirin EC 81 mg [Ecotrin 81 mg] 81 mg PO DAILY 10/22/17 [History] Dicyclomine HCl 10 mg PO TID 10/22/17 [History] Fluticasone/Vilanterol [Breo Ellipta 100-25 Mcg INH] 1 each IH BID 10/22/17 [ History] Omeprazole 20 MG [Prilosec 20 mg] 20 mg PO DAILY 10/22/17 [History] Prazosin HCl [Minipress] 2 mg PO TID 10/22/17 [History] Sumatriptan Succinate [Imitrex] 100 mg PO UD 10/22/17 [History] Hx Tetanus, Diphtheria Vaccination/Date Given: Yes Hx Influenza Vaccination/Date Given: Yes Hx Pneumococcal Vaccination/Date Given: No - Review of Systems Constitutional: No Symptoms Eyes: No Symptoms Ears, Nose, & Throat: No Symptoms Respiratory: No Symptoms Cardiac: No Symptoms Abdominal/Gastrointestinal: Abdominal Pain, No Nausea, No Vomiting, No Diarrhea , No Constipation Genitourinary Symptoms: No Symptoms Musculoskeletal: No Symptoms Skin: No Symptoms Neurological: No Symptoms Psychological: No Symptoms Endocrine: No Symptoms Hematologic/Lymphatic: No Symptoms Immunological/Allergic: No Symptoms All Other Systems: Reviewed and Negative - Past Medical History Pertinent Past Medical History: Yes Neurological History: Migraines ENT History: No Pertinent History Cardiac History: Hypertension Respiratory History: No Pertinent History, COPD Endocrine Medical History: No Pertinent History Musculoskeletal History: No Pertinent History GI Medical History: GERD History: No Pertinent History Psycho-Social History: Anxiety, Depression Female Reproductive Disorders: No Pertinent History Other Medical History: hep c - Past Surgical History Past Surgical History: Yes Neuro Surgical History: No Pertinent History Cardiac: Cardiac Stent Respiratory: No Pertinent History Female Surgical History: Lumpectomy Other Surgical History: tubal - Social History Smoking Status: Current every day smoker How long have you smoked: yrs Exposure to second hand smoke: No Drug Use: none Patient Lives Alone: Yes - Nursing Vital Signs Nursing Vital Signs: Initial Vital Signs Temperature 97.7 F 04/16/19 20:55 Pulse Rate 93 H 04/16/19 20:55 Respiratory Rate 18 04/16/19 20:55 Blood Pressure 149/102 04/16/19 20:55 O2 Sat by Pulse Oximetry 100 04/16/19 20:55 Pain Scale Pain Intensity 2 - Physical Exam General Appearance: no apparent distress, alert, anxiety Eye Exam: PERRL/EOMI, eyes nml inspection Ears, Nose, Throat Exam: normal ENT inspection, moist mucous membranes Neck Exam: normal inspection, non-tender, supple, full range of motion Respiratory Exam: normal breath sounds, lungs clear, airway intact, No chest tenderness, No respiratory distress Cardiovascular Exam: regular rate/rhythm, normal heart sounds, normal peripheral pulses Gastrointestinal/Abdomen Exam: soft, normal bowel sounds, tenderness (mild rlg and ruq) Pelvic Exam: not done Rectal Exam: not done Back Exam: normal inspection, normal range of motion, No CVA tenderness, No vertebral tenderness Extremity Exam: normal inspection, normal range of motion, pelvis stable Neurologic Exam: alert, oriented x 3, cooperative, technical designer II-XII nml as tested, normal mood/affect, nml cerebellar function, nml station & gait Skin Exam: normal color, warm, dry Lymphatic Exam: No adenopathy SpO2 Interpretation: normal O2 Delivery: Room Air - Course Nursing assessment & vital signs reviewed: Yes Ordered Tests: Active Orders 24 hr Category Date Time Status ABDOMEN AND PELVIS W/0 CONTRAS [CT] Stat Exams 04/16/19 21:21 Taken UA W/RFX UR CULTURE Stat Lab 04/16/19 22:51 Completed Lab/Rad Data: Laboratory Results 04/16/19 Range/Units 22:51 Urine Color YELLOW (YELLOW) Urine Appearance CLEAR (CLEAR) Urine pH 6.0 (5-6) Ur Specific Gilbert 1.019 (1.005-1.025) Urine Protein NEGATIVE (Negative) Urine Ketones NEGATIVE (NEGATIVE) Urine Blood NEGATIVE (0-5) Francis/ul Urine Nitrite NEGATIVE (NEGATIVE) Urine Bilirubin NEGATIVE (NEGATIVE) Urine Urobilinogen 2 (0-1) mg/dL Ur Leukocyte Esterase NEGATIVE (NEGATIVE) Urine WBC (Auto) 0-2 (0-5) /HPF Urine RBC (Auto) NONE (0-2) /HPF U Epithel Cells (Auto) NONE (FEW) /HPF Urine Bacteria (Auto) NONE SEEN (NEGATIVE) /HPF Urine Mucus (Auto) SLIGHT (NEGATIVE) /HPF Urine Culture Reflexed NO (NO) Urine Glucose NEGATIVE (NEGATIVE) mg/dL - Progress Progress: unchanged Progress Note: 04/16/19 21:37 i discussed the need to and benefit in performing the lab draw and in placing an iv. i also discussed the risks of not obtaining labs and not placing an iv. she refuses and signs a refusal of lab tests 04/16/19 22:36 ct abd/pelvis-no acute process. Counseled pt/family regarding: lab results, diagnosis, need for follow-up, rad results - Departure Departure Disposition: Home Clinical Impression: Abdominal pain Condition: Stable Critical Care Time: No Referrals: SERAFIN STONER [Primary Care Provider] - Additional Instructions: drink plenty of fluids. follow up with primary doctor for further management
[2019-04-16 22:58] LABS: Appearance CLEAR (CLEAR); Bilirubin NEGATIVE (NEGATIVE); Blood NEGATIVE Ery/ul (0-5); Glucose NEGATIVE (NEGATIVE); Ketones NEGATIVE (NEGATIVE); Leukocyte Esterase NEGATIVE (NEGATIVE); Mucus SLIGHT /HPF (NEGATIVE); Nitrite NEGATIVE (NEGATIVE); Protein,Urine Dip NEGATIVE (Negative); Specific Gravity 1.019 (1.005-1.025); Urobilinogen 2 mg/dL (0-1); WBC 0-2 /HPF (0-5)
[2019-04-16 23:06] LABS: Bacteria NONE SEEN /HPF (NEGATIVE)
[2019-04-16 23:48] VITALS: BP 118/95; PULSE 87; O2SAT 97
--- NOTE | 2019-04-17 08:49 | XRAY ---
Indication: Right abdomen pain. Multiple contiguous axial images obtained through the abdomen and pelvis without contrast as ordered. Comparison: None Lung bases demonstrates minimal bibasilar atelectasis/scarring. No infiltrate or effusion. Heart is not enlarged. Stomach is distended with food/fluid. Noncontrasted stomach and bowel loops appear nonobstructed. Normal appendix. No free fluid/air. Nonobstructing punctate right renal calculus. Left mid kidney demonstrates 2.5 cm cortical cyst. Remaining liver, gallbladder, pancreas, spleen, adrenal glands, kidneys, ureters, bladder, and uterus appear unremarkable for noncontrast exam. Mild scattered aortoiliac calcifications without AAA. Osseous structures intact. Impression: 1. Nonobstructing right renal micro-calculus and left renal cyst. 2. Remaining CT abdomen/pelvis without contrast exam is negative. Comment: Preliminary interpretation was made by [facility]. No critical discrepancy. CT DI 3.98
== END 2019-04-16 23:40 | disposition home or self-care (01) ==
LOC: ED 20:37
DX: R10.9 Unspecified abdominal pain (principal)
CPT/HCPCS: 74176; 81001; 99283

== ENCOUNTER 2022-12-01 20:53 | Emergency (ER) | payer MEDICARE ==
[2022-12-01] MEDS ORDERED: Fluor-I-Strip/Ful-Flo OP ONE ×2 (21:39→21:42)
[2022-12-01] MEDS ORDERED: TETRACAINE 0.5% STERI-UNIT SOL OP STA (21:39)
[2022-12-01] MEDS ORDERED: Eye-Stream Solution OP ONE (21:39)
[2022-12-01] MEDS ORDERED: Eye-Stream Solution ONE (21:42)
[2022-12-01] MEDS ORDERED: TETRACAINE 0.5% STERI-UNIT SOL OP ONE (21:42)
[2022-12-01] MEDS ORDERED: Erythromycin 1 GM OP STA (21:49)
[2022-12-01] MEDS ORDERED: Erythromycin 1 GM ONE (21:50)
[2022-12-01 21:51] VITALS: PULSE 75; O2SAT 97
--- NOTE | 2022-12-01 21:56 | ERPHSYRPT ---
- History of Present Illness Time Seen by Provider: 12/01/22 21:56 Source: patient Exam Limitations: no limitations Patient Subjective Stated Complaint: pt states I looked up at the ceiling and something fell in my eye. It feels like something is crawling in there Triage Nursing Assessment: pt ambulated into the er; pt is axo x4; c/o left eye injury; redness present to the inner left sclera; swelling present to inner left sclera; pupil 2 mm and PERRL; skin is PDW; no respiratory distress present; hypertension Physician History: Patient is a 8-year-old female presents to emergency department for evaluation of left eye irritation. Patient believes it may have a foreign body. Patient was at home laying on her bed. Patient took off her glasses and states that something fell from the ceiling into her left eye. Patient feels a foreign body sensation left eye. Patient states that she used her finger in an attempt to pull the foreign body out of her eye however she feels that she may have irritated her eye even worse. Incident occurred just prior to arrival. No trauma. No fever. Patient does not wear contacts. Patient only wears corrective eyeglass lenses. Patient is otherwise healthy. She voices no other complaints or concerns at this time. Portions of this note were created with voice recognition technology. There may be grammatical, spelling, punctuation or sound alike errors Timing/Duration: today Location: left eye Severity: mild Apparent Injury: no Associated Symptoms: redness, foreign body sensation Visual Assistive Devices: Glasses Chemical Exposure: No Trauma: No Welding Arc/Tanning Bed Exposure: No Allergies/Adverse Reactions: Penicillins Allergy (Severe, Verified 12/01/22 21:35) Swelling akhil Allergy (Verified 12/01/22 21:35) Hives Sulfa (Sulfonamide Antibiotics) Allergy (Verified 12/01/22 21:35) Itching Home Medications: Albuterol 17 gm IH DAILY 08/25/17 [History] Hydroxyzine HCl 25 mg [Atarax 25 mg] 25 mg PO DAILY 08/25/17 [History] lisinopriL [Zestril] 20 mg PO DAILY 08/25/17 [History] Aspirin EC 81 mg [Ecotrin 81 mg] 81 mg PO DAILY 10/22/17 [History] Fluticasone/Vilanterol [Breo Ellipta 100-25 Mcg INH] 1 each IH BID 10/22/17 [History] SUMAtriptan succinate [Imitrex] 100 mg PO UD 10/22/17 [History] Alendronate Sodium [Fosamax] 70 mg PO WEEKLY 12/01/22 [History] Bumetanide 1 mg PO DAILY 12/01/22 [History] Erenumab-Aooe [Aimovig Autoinjector] 1 mg SQ WEEKLY 12/01/22 [History] Hydrocortisone [Procto-Med Hc] 1 applic TOP DAILY 12/01/22 [History] Lorazepam 0.5 mg [Ativan 0.5 MG] 0.5 mg PO DAILY PRN 12/01/22 [History] Hx Tetanus, Diphtheria Vaccination/Date Given: Yes Hx Influenza Vaccination/Date Given: No Hx Pneumococcal Vaccination/Date Given: No Travel Risk - International Travel Have you traveled outside of the country in past 3 weeks: No - Coronavirus Screening Are you exhibiting any of the following symptoms?: No Close contact with a COVID-19 positive Pt in past 14-21 Days: No - Vaccine Status Have you recieved a Covid-19 vaccination: No - Review of Systems Constitutional: No Symptoms, No Fever, No Chills Eyes: No Symptoms Ears, Nose, & Throat: No Symptoms Respiratory: No Symptoms, No Cough, No Dyspnea Cardiac: No Symptoms, No Chest Pain, No Edema, No Syncope Abdominal/Gastrointestinal: No Symptoms, No Abdominal Pain, No Nausea, No Vomiting, No Diarrhea Genitourinary Symptoms: No Symptoms, No Dysuria Musculoskeletal: No Symptoms, No Back Pain, No Neck Pain Skin: No Symptoms, No Rash Neurological: No Symptoms, No Dizziness, No Focal Weakness, No Sensory Changes Psychological: No Symptoms Endocrine: No Symptoms Hematologic/Lymphatic: No Symptoms Immunological/Allergic: No Symptoms All Other Systems: Reviewed and Negative - Past Medical History Pertinent Past Medical History: Yes Neurological History: Migraines ENT History: No Pertinent History Cardiac History: Hypertension Respiratory History: No Pertinent History, COPD Endocrine Medical History: No Pertinent History Musculoskeletal History: No Pertinent History GI Medical History: GERD History: No Pertinent History Psycho-Social History: Anxiety, Depression Female Reproductive Disorders: No Pertinent History Other Medical History: hep c - Past Surgical History Past Surgical History: Yes Neuro Surgical History: No Pertinent History Cardiac: Cardiac Stent Respiratory: No Pertinent History Female Surgical History: Lumpectomy Other Surgical History: tubal - Social History Smoking Status: Current every day smoker How long have you smoked: yrs Exposure to second hand smoke: No Drug Use: none Patient Lives Alone: Yes - Nursing Vital Signs Nursing Vital Signs: Initial Vital Signs Temperature 97.3 F 12/01/22 21:41 Pulse Rate 75 12/01/22 21:41 Respiratory Rate 18 12/01/22 21:41 Blood Pressure 185/110 12/01/22 21:41 O2 Sat by Pulse Oximetry 97 12/01/22 21:41 Pain Scale Pain Intensity 6 - Physical Exam General Appearance: no apparent distress Vision Acuity Degree Evaluation Phase: Corrected Vision Acuity Right Eye: 20/50 Vision Acuity Left Eye: 20/50 Intraocular Pressure (Tonopen): both eyes (Intraocular pressure in both eyes is 17) Eye Exam: left eye: other (No obvious corneal abrasions. No obvious foreign bodies. No acute change in visual acuity.), bilateral eye: normal inspection, PERRL, EOMI Ears, Nose, Throat Exam: normal ENT inspection, pharynx normal Neck Exam: normal inspection, non-tender, supple Respiratory Exam: airway intact, No respiratory distress Cardiovascular Exam: regular rate/rhythm Gastrointestinal Exam: soft, No tenderness, No distention Extremity Exam: normal inspection Neurologic: alert, oriented x 3, cooperative Skin Exam: normal color, warm, dry Lymphatic: No adenopathy SpO2 Interpretation: normal SpO2: 97 O2 Delivery: Room Air - Course Nursing assessment & vital signs reviewed: Yes Ordered Tests: Medication Summary Discontinued Medications Generic Name Dose Route Start Last Admin Trade Name Marylou PRN Reason Stop Dose Admin Erythromycin 1 gm 12/01/22 21:49 12/01/22 21:51 Erythromycin Base 1 Gm Tube Eye Ointment OP 12/01/22 21:50 1 gm STAT STA Administration Eye Irrigation Solution 15 ml 12/01/22 21:39 12/01/22 21:43 Sodium/Potassium/Chavo/Magnesium 30 Ml Eye Wash OP 12/01/22 21:40 15 ml STAT ONE Administration Eye Irrigation Solution Confirm 12/01/22 21:42 Sodium/Potassium/Chavo/Magnesium 30 Ml Eye Wash Administered 12/01/22 21:43 Dose 30 ml .ROUTE .STK-MED ONE Fluorescein Sodium 1 mg 12/01/22 21:39 12/01/22 21:43 Fluorescein Sodium 1 Mg/Strip Strip OP 12/01/22 21:40 1 mg STAT ONE Administration Fluorescein Sodium Confirm 12/01/22 21:42 Fluorescein Sodium 1 Mg/Strip Strip Administered 12/01/22 21:43 Dose 1 mg OP .STK-MED ONE Tetracaine HCl 4 ml 12/01/22 21:39 12/01/22 21:43 Tetracaine Hcl/Pf 4 Ml Bottle OP 12/01/22 21:40 4 ml STAT STA Administration Tetracaine HCl Confirm 12/01/22 21:42 Tetracaine Hcl/Pf 4 Ml Bottle Administered 12/01/22 21:43 Dose 4 ml OP .STK-MED ONE - Progress Progress: improved Progress Note: Patient is 62-year-old female presents to our ED for evaluation of foreign body to left eye. Patient used her finger to remove the foreign body however she continues to have a foreign body sensation/irritation of her left eye. No acute change in vision. Physical exam reveals an irritated left eye. There is some redness. Otherwise eye exam within normal limits. Fluorescein/Cho lamp exam negative for corneal abrasion. No obvious foreign body observed. We flipped her upper lid upwards no trapped foreign body observed. Eye pressures are 17 bilaterally. Patient admits to history of glaucoma. Pupils equal round reactive. Extraocular motion intact. The involved eye was irrigated thoroughly in our ED. We applied erythromycin ophthalmic. A prescription for the same was forwarded to patient's pharmacy. Patient agrees to follow-up with her document coordinator within 48 hours for reevaluation. She voices no other complaints or concerns at this time. Portions of this note were created with voice recognition technology. There may be grammatical, spelling, punctuation or sound alike errors Complexity of problem addressed is low acute uncomplicated Complexity of data reviewed and analyzed is none. No specialized testing ordered. Diagnosis made based on history and physical exam. Risk of complication and or risk morbidity/mortality patient management is moderate. Patient received erythromycin ophthalmic ointment to the involved eye. A prescription for the same was forwarded to patient's pharmacy. We will discharge home. Patient agrees to follow-up with her document coordinator within 48 hours for reevaluation. Vital stable. Plan of care established via shared decision making. No social determinants of health present to impede follow-up. Patient voices no other complaints or concerns at this time. Portions of this note were created with voice recognition technology. There may be grammatical, spelling, punctuation or sound alike errors 12/01/22 22:00 Counseled pt/family regarding: diagnosis, need for follow-up - Departure Departure Disposition: Home Clinical Impression: Eye irritation, Foreign body of left eye Condition: Stable Critical Care Time: No Referrals: JEANNE POE, [Primary Care Provider] - Follow up/PCP as directed Additional Instructions: Erythromycin ophthalmic ointment application instructions. Apply a short strip of ointment to lower lid of left eye 3-4 times daily for 1 week. Discharge/Care Plan CRISS ASH was seen on 12/01/22 in the Emergency Room. The patient was counseled regarding Diagnosis,Lab results, Imaging studies, need for follow up and when to return to the Emergency Room. Prescriptions given: Discharge Note I have spoken with the patient and/or caregivers. I have explained the patient's condition, diagnosis and treatment plan based on the information available to me at this time. I have answered the patient's and/or caregiver's questions and addressed any concerns. The patient and/or caregivers have as good understanding of the patient's diagnosis, condition and treatment plan as can be expected at this point. The vital signs have been stable. The patient's condition is stable and appropriate for discharge from the emergency department. The patient will pursue further outpatient evaluation with the primary care physician or other designated or consulting physician as outlined in the discharge instructions. The patient and/or caregivers are agreeable to this plan of care and follow-up instructions have been explained in detail. The patient and/or caregivers have received these instruction. The patient/and or caregivers are aware that any significant change in condition or worsening of symptoms should prompt an immediate return to this or the closest emergency department or call 911. Prescriptions: Erythromycin Base 3.5 gm [Erythromycin 3.5 GM OPHTH.] 3.5 gm OP QID 7 Days #1 unit
[2022-12-01 21:58] VITALS: BP 163/110
== END 2022-12-01 22:01 | disposition home or self-care (01) ==
LOC: ED 20:53
DX: T15.92XA Foreign body on external eye, part unspecified, left eye, initial encounter (principal); H57.12 Ocular pain, left eye; I10 Essential (primary) hypertension; Z79.899 Other long term (current) drug therapy; Z28.310 Unvaccinated for COVID-19; Z72.0 Tobacco use
CPT/HCPCS: 99281; A9270-GY